=== PATIENT | male | born 2005 | race Caucasian/White ===

== ENCOUNTER 2025-02-23 22:30 | Emergency (ER) | payer MEDICAID ==
[~2025-02-23] VITALS: Ht 177.8 cm; Wt 89.8 kg
[2025-02-23 23:33] VITALS: TEMP 98.9
[2025-02-24] MEDS ORDERED: IBUPROFEN 600 MG TABLET ONE (00:20)
[2025-02-24] MEDS: IBUPROFEN 600 MG TABLET PO ONE (00:23)
[2025-02-24] MEDS ORDERED: NAPR-1009 PO (02:16)
[2025-02-24 02:25] VITALS: BP 133/72; O2SAT 98
== END 2025-02-24 02:25 | disposition home or self-care (01) ==
LOC: EDBD → ER 22:37
DX: S93.402A Sprain of unspecified ligament of left ankle, initial encounter (principal); X58.XXXA Exposure to other specified factors, initial encounter; Y93.9 Activity, unspecified; Y92.89 Other specified places as the place of occurrence of the external cause; Y99.8 Other external cause status
CPT/HCPCS: 73610-TC; 73700-TC

== ENCOUNTER 2025-02-24 23:33 | Emergency (ER) | payer MEDICAID ==
[~2025-02-24 23:33] MED LIST: NAPR-1009 PO
== END 2025-02-25 00:09 | disposition left against medical advice (07) ==
LOC: ER 23:37
DX: M25.572 Pain in left ankle and joints of left foot (principal); Z53.21 Procedure and treatment not carried out due to patient leaving prior to being seen by health care provider